=== PATIENT | female | born 1960 | race Caucasian/White ===

== ENCOUNTER 2016-12-30 16:10 | Emergency (ER) | payer OTHER ==
--- NOTE | ~2016-12-30 | CR94 ---
[facility]. [facility] A Service of [facility] & [facility] RADIOLOGY TEXT RESULTS PATIENT: FAITH KWONG LOCATION: SED : 64 UNIT #: [id number] AGE: [address]: Daren eNwton SEX: F ORDER DR: [id number] [place] [id number] MR#: [id number] Acc #: [id number] NAME: FAITH KWONG : 1960 SEX: F STUDY DATE/TIME: 12/30/2016 17:30 UNIT: SED ROOM: STUDY DESCRIPTION: CR Elbow Min 3 Views Rt Attending Physician: Daren Newton P.A.-C. Ordering Physician: Daren Newton P.A.-C. Primary Care Physician: Primary Care Physician No MEDICAL IMAGING REPORT This report is preliminary unless electronic signature is present. EXAM Right elbow, 12/30/2016 INDICATIONS Lateral elbow pain after an injury today at work. Boards hit arm. Swelling. TECHNIQUE 3 views right elbow. No comparisons. FINDINGS The examination is negative. No acute fracture, no retained opaque foreign body, no joint effusion. Mild degenerative change. IMPRESSION 1. Negative. Dictated by... Marco Garcia M.D. THIS IS AN ELECTRONICALLY VERIFIED REPORT Marco Garcia M.D. at 12/31/2016 10:10 AM BERE/annelise TD: 12/30/2016 22:11 JOB #: [id number] MEDICAL IMAGING REPORT Page 1 of 1
--- NOTE | ~2016-12-30 | CR133 ---
[facility]. [facility] A Service of [facility] RADIOLOGY TEXT RESULTS PATIENT: FAITH KWONG LOCATION: SED : 64 UNIT #: [id number] AGE: [address]: Daren Newton PAC SEX: F ORDER DR: [id number] [place] [id number] E MR#: [id number] Acc #: [id number] NAME: FAITH KWONG : 1960 SEX: F STUDY DATE/TIME: 12/30/2016 17:30 UNIT: SED ROOM: STUDY DESCRIPTION: CR Forearm 2 View Rt Attending Physician: Daren Newton P.A.-C. Ordering Physician: Daren Newton P.A.-C. Primary Care Physician: Primary Care Physician No MEDICAL IMAGING REPORT This report is preliminary unless electronic signature is present. EXAM Right forearm series, 12/30/2016 INDICATION 56-year-old female with proximal forearm pain and lateral elbow pain today. Injury at work. Boards hip the patient's arm. TECHNIQUE 2 views of the right forearm. No comparison. FINDINGS Examination is negative. No acute fracture. No retained opaque foreign body. IMPRESSION Negative. Dictated by... Marco Garcia M.D. THIS IS AN ELECTRONICALLY VERIFIED REPORT Marco Garcia M.D. at 12/31/2016 10:10 AM BERE/navya TD: 12/30/2016 22:08 JOB #: [id number] [facility]. [facility] A Service of [facility] RADIOLOGY TEXT RESULTS PATIENT: FAITH KWONG LOCATION: SED : 64 UNIT #: [id number] AGE: [address]: Daren Newton PAC SEX: F ORDER DR: MEDICAL IMAGING REPORT Page 1 of 1
[2016-12-30] MEDS ORDERED: NOVALOG (16:43)
[2016-12-30] MEDS ORDERED: LISINOPRIL10 MG PO (16:43)
[2016-12-30] MEDS ORDERED: LANTIS (16:43)
[2016-12-30] MEDS ORDERED: CHOLESTEROL MED (16:44)
== END 2016-12-30 18:30 | disposition home or self-care (01) ==
LOC: SED 16:10
DX: S50.01XA Contusion of right elbow, initial encounter (principal); I10 Essential (primary) hypertension; E11.9 Type 2 diabetes mellitus without complications; Z23 Encounter for immunization; X50.9XXA Other and unspecified overexertion or strenuous movements or postures, initial encounter
CPT/HCPCS: 73080; 73090; 90471; 90715; 99284